=== PATIENT | female | born 1965 | race Caucasian/White ===

== ENCOUNTER 2018-12-27 18:26 | Emergency (ER) | payer OTHER ==
[~2018-12-27] VITALS: Ht 157.5 cm; Wt 73.4 kg
[2018-12-27 19:16] VITALS: Ht 157.5 cm; Wt 73.4 kg
[2018-12-27] MEDS ORDERED: KETOROLAC 15 MG INJ IM STA (22:19)
[2018-12-27] MEDS ORDERED: TRAM50TA2 PO (22:38)
--- NOTE | 2018-12-27 22:42 | ERD ---
ER Documentation Chief Complaint Chief Complaint Left shoulder and arm pain worsened last x2 weeks. chronic >6months HPI Patient is a 53-year-old female with a past medical history of DM type II, who presents the ER for concerns of shoulder pain times 6 months. Patient states over the last 3 days her pain has been worse. Patient states she has been going to physical therapy which is intermittently allowed her to have increased range of motion however she continues to have severe pain. Patient states she occasionally does take ibuprofen for pain which does help. Patient denies any numbness or tingling. Patient denies any fevers or chills. Patient denies any chest pain or shortness of breath. Patient is right-hand dominant. Patient denies any falls or trauma. ROS All systems reviewed and are negative except as per history of present illness. Medications Home Meds Active Scripts Tramadol HCl (Tramadol HCl) 50 Mg Tablet, 50 MG PO Q6 PRN for PAIN, #10 TAB Prov:CRISTIAN REYNOSO PA-C 12/27/18 Allergies Allergies: Coded Allergies: No Known Allergy (Unverified , 12/27/18) PMhx/Soc Medical and Surgical Hx: pt denies Medical Hx, pt denies Surgical Hx Hx Alcohol Use: No Hx Substance Use: No Hx Tobacco Use: No Smoking Status: Never smoker FmHx Family History: No diabetes Physical Exam Vitals Vital Signs Date Temp Pulse Resp B/P (MAP) Pulse Ox O2 O2 Flow FiO2 Time Delivery Rate 12/27/18 97.2 103 18 138/77 97 19:16 (97) Physical Exam GENERAL: Well-developed, well-nourished female. Appears in no acute distress. HEAD: Normocephalic, atraumatic. EYES: Pupils are equally reactive bilaterally. EOMs grossly intact. No conjunctival erythema. ENT: Moist mucous membranes. No uvula deviation. No kissing tonsils. NECK: Supple. No meningismus. Normal range of motion of the neck. No cervical midline tenderness. LUNG: Clear to auscultation bilaterally. No rhonchi, wheezing, rales or coarse breath sounds. HEART: Regular rate and rhythm. No murmurs, rubs or gallops. EXTREMITIES: Equal pulses bilaterally. No peripheral clubbing, cyanosis or edema. No unilateral leg swelling. NEUROLOGIC: Alert and oriented. Moving all four extremities without any difficulty. Normal speech. Steady gait. SKIN: Normal color. Warm and dry. No rashes or lesions. LUE: No deformity, erythema, ecchymosis or swelling. Skin intact. No bursal swelling. Tender to palpation throughout the shoulder joint. Decreased active range of motion. Normal passive range of motion.. Sensation intact to light touch. Neurovascularly intact. (Able to give thumbs up, make an ok sign, cross digits 2 and 3, thumb to pinky opposition. 2+ RP.) No snuffbox tenderness. Results 24 hrs Current Medications Medications Dose Sig/Roland Start Time Status Last (Trade) Ordered Route PRN Stop Time Admin Dose Reason Admin Ketorolac 15 mg ONCE STAT 12/27/18 DC 12/27/18 Tromethamine IM 22: 22:29 (Toradol) 12/27/18 22:21 Procedures/MDM ED COURSE: The patient was stable throughout ED course. I kept the patient and/or family informed of laboratory and diagnostic imaging results throughout the ED course. DIAGNOSTIC IMAGING: Read by radiologist. Patient: LAURA MELCHOR : 1965 Age: 53 Sex: F MR #: [id number] DOS: 12/27/18 2219 Ordering MD: CRISTIAN REYNOSO PA-C Location: [facility] Room/Bed: PROCEDURE: XR shoulder. CLINICAL INDICATION: Left shoulder pain. TECHNIQUE: AP internal and external rotation and scapular Y views of the left shoulder were performed. COMPARISON: None available FINDINGS: The clavicle, scapula and proximal humerus are normal in appearance. The acromioclavicular joint is normal in appearance. There is no significant lateral downsloping of the acromion. The glenohumeral joint space is maintained. There is no evidence of fracture or dislocation. The left hemithorax is normal in appearance. The soft tissues are unremarkable. IMPRESSION: 1. Normal radiographs of the left shoulder. No evidence of fracture or dislocation. RPTAT: HGAS .Fausto Alford MD, Date Time Electronically viewed and signed by .Fausto Alford MD, on 12/27/2018 23 :37 .S/ CC: CRISTIAN REYNOSO PA-C [id number] PROCEDURES: None. MEDICATIONS GIVEN: Toradol IM Patient tolerated medication well with no adverse reactions. Patient reported improvement in pain. MEDICAL DECISION MAKING: This is a 53-year-old female presents the ER for concerns of left shoulder pain times 6 months, worse over the last 3 days. Vital signs were reviewed. Patient is afebrile. Patient is not hypoxic. Left shoulder series was unremarkable. Per clinical exam findings, patient likely has adhesive capsulitis. Patient was advised to continue with physical therapy. Short course of tramadol will be given for pain. Patient advised to follow-up primary care physician for any additional refills. Patient advised to take this medication when driving or operating machinery. Low suspicion for fracture, dislocation, ligamentous tear, impingement syndrome, biceps tendonitis, gout, septic joint, osteoarthritis. Unable to rule out ligament or tendon injuries at this time Patient was nontoxic, [id number] prior to discharge. PRESCRIPTIONS: Tramadol DISCHARGE: Take pain medications as needed. I have instructed the patient to follow-up with his/her primary care physician in 2-3 days. I have instructed the patient to promptly return to the ER for any new or worsening symptoms including increased pain, swelling, redness, warmth or fever. The patient and/or family expressed understanding of and agreement with this plan. All questions were answered. Home care instructions were provided. Disclaimer: Inadvertent spelling and grammatical errors are likely due to EHR/dictation software use and do not reflect on the overall quality of patient care. Also, please note that the electronic time recorded on this note does not necessarily reflect the actual time of the patient encounter. Departure Diagnosis: Primary Impression: Shoulder pain Chronicity: acute Laterality: left Qualified Codes: M25.512 - Pain in left shoulder Condition: Stable Patient Instructions: Shoulder Pain (Uncertain Cause) Referrals: COMMUNITY CLINICS YOU HAVE RECEIVED A MEDICAL SCREENING EXAM AND THE RESULTS INDICATE THAT YOU DO NOT HAVE A CONDITION THAT REQUIRES URGENT TREATMENT IN THE EMERGENCY DEPARTMENT. FURTHER EVALUATION AND TREATMENT OF YOUR CONDITION CAN WAIT UNTIL YOU ARE SEEN IN YOUR DOCTORS OFFICE WITHIN THE NEXT 1-2 DAYS. IT IS YOUR RESPONSIBILITY TO MAKE AN APPOINTMENT FOR FOLOW-UP CARE. IF YOU HAVE A PRIMARY DOCTOR --you should call your primary doctor and schedule an appointment IF YOU DO NOT HAVE A PRIMARY DOCTOR YOU CAN CALL OUR PHYSICIAN REFERRAL HOTLINE AT IF YOU CAN NOT AFFORD TO SEE A PHYSICIAN YOU CAN CHOSE FROM THE [facility] [address] [facility] [address] [facility] [address] [facility] [address] [facility] [address] [facility]. [facility] [address] [facility]. [facility] YOU HAVE RECEIVED A MEDICAL SCREENING EXAM AND THE RESULTS INDICATE THAT YOU DO NOT HAVE A CONDITION THAT REQUIRES URGENT TREATMENT IN THE EMERGENCY DEPARTMENT. FURTHER EVALUATION AND TREATMENT OF YOUR CONDITION CAN WAIT UNTIL YOU ARE SEEN IN YOUR DOCTORS OFFICE WITHIN THE NEXT 1-2 DAYS. IT IS YOUR RESPONSIBILITY TO MAKE AN APPOINTMENT FOR FOLOW-UP CARE. IF YOU HAVE A PRIMARY DOCTOR --you should call your primary doctor and schedule and appointment IF YOU DO NOT HAVE A PRIMARY DOCTOR YOU CAN CALL OUR PHYSICIAN REFERRAL HOTLINE AT . IF YOU CAN NOT AFFORD TO SEE A PHYSICIAN YOU CAN CHOSE FROM THE FOLLOWING [facility], [facility] INSTITUTIONS: [facility] [address] [place] [address] [facility] [address] [place] [address] [facility] [address] [place] [address] Additional Instructions: Llame al doctor MAANA y durga vickey SHARMAINE PARA DENTRO DE 1-2 LOPEZ.Dgale a la secretaria que nosotros le instruimos hacer esta sharmaine.Avise o llame si harman condicin se empeora antes de la sharmaine. Regresa aqui si peor o no mejor. CRISTIAN REYNOSO PA-C Dec 27, 2018 22:42
[2018-12-28 00:16] VITALS: BP 119/64; PULSE 86; RESP 16
== END 2018-12-28 00:17 | disposition home or self-care (01) ==
LOC: FTE 18:26
DX: M25.512 Pain in left shoulder (principal); E11.9 Type 2 diabetes mellitus without complications
CPT/HCPCS: 73030; 96372; J1885; Z7502